=== PATIENT | male | born 1955 | race African-American/Black ===

== ENCOUNTER 2017-05-20 11:33 | Day surgery (SDC) | payer BC ==
[~2017-05-20] VITALS: Ht 177.8 cm; Wt 81.3 kg
[~2017-05-20 11:33] MED LIST: ASPI81TA3 GTB; CARV6.2579 PO; CHLO25TA13 PO; LANS30TA6 PO
[2017-05-20 12:39] VITALS: Ht 177.8 cm; Wt 81.3 kg
[2017-05-20 12:54] VITALS: BP 183/100; PULSE 72; RESP 18
[2017-05-20] MEDS ORDERED: CHOLESTEROL MED. (12:56)
[2017-05-20] MEDS ORDERED: VIT D DAILY (12:56)
--- NOTE | 2017-05-20 14:12 | OPPN ---
Date/Time of Note Date/Time of Note DATE: 05/20/17 TIME: 14:11 Operative Report Preoperative Diagnosis Change in bowel habit History of colon polyps Postoperative Diagnosis Internal and external hemorrhoids No colon neoplasm was identified Operation/Procedure Performed Colonoscopy Surgeon see signature line printer assistant None Anesthesia: moderate sedation Estimated blood loss: none Transfusion Required none Specimen None Grafts/Implants none Complications none EUSEBIO GILES MD May 20, 2017 14:12
[2017-05-20] MEDS ORDERED: MIDAZOLAM 1 MG/ML 2 ML INJ ONE ×3 (14:41→14:42)
[2017-05-20] MEDS ORDERED: FENTAnyl 50 MCG/ML VIAL ONE (14:42)
[2017-05-20 14:45] VITALS: BP 195/146; RESP 23
--- NOTE | 2017-05-20 21:49 | GILP ---
DATE OF PROCEDURE: NAME OF PROCEDURE: Colonoscopy. SURGEON: Eusebio White MD PREOPERATIVE DIAGNOSES: 1. Change in bowel habit. 2. History of colon polyps. POSTOPERATIVE DIAGNOSES: 1. Colonoscopy all the way to the cecum. 2. Internal and external hemorrhoids. 3. No colon neoplasm was identified. INDICATION FOR THE PROCEDURE: Mr. Hernando Ramos is a 62-year-old male patient who had change in the bowel habit with a history of colon polyps. The patient was scheduled for colonoscopy for [facility] evaluation. The procedure and possible complications were well explained to the patient, the patient understood and consented to the procedure. DESCRIPTION OF PROCEDURE: Under the influence of fentanyl and Versed, the colonoscope was carefully introduced in the rectum and under direct vision, it was advanced all the way to the cecum. FINDINGS: The patient had internal and external hemorrhoids. No colon neoplasm was identified. He tolerated the procedure very well and there was no complication from the procedure. At the end o f the procedure, he was awake with stable vital signs and he was discharged home to the care of his family. IMPRESSION: Please see postoperative diagnosis. PLAN: Next screening colonoscopy in 10 years. Dictated By: EUSEBIO HAN/KEITH Conf#: [id number] DID#: [id number]
== END 2017-05-20 18:22 | disposition home or self-care (01) ==
LOC: GIL 11:33
PROVIDERS: ATTEND Internal Medicine Gastroenterology
DX: R19.4 Change in bowel habit (principal); K64.8 Other hemorrhoids; K64.4 Residual hemorrhoidal skin tags; Z86.010 Personal history of colon polyps; I10 Essential (primary) hypertension
CPT/HCPCS: 45378; J2250; J3010; Z7610